=== PATIENT | male | born 1965 | race Caucasian/White ===

== ENCOUNTER → 2019-06-10 07:37 | Outpatient (CLI) | payer OTHER, SELFPAY ==
--- NOTE | 2019-06-10 07:42 | CT_ITS ---
STUDY: LEFT KNEE CT SCAN REASON FOR EXAM: Male, 53 years old. LEFT KNEE PAIN [facility] RADIATION DOSAGE (If Supplied By Facility): CTDIvol = ( 32.42 ) mGy, DLP = ( 2360.41 ) mGycm. Individualized dose optimization techniques were used for this CT.? TECHNIQUE: Axial multidetector CT scan of the left knee. Coronal and sagittal reformatted images. Additional imaging of the left hip and ankle ([facility] protocol). COMPARISON: January 26, 2016. FINDINGS: Moderate/severe medial compartment joint space narrowing. Mild lateral compartment joint space narrowing. Mild/moderate patellofemoral joint space. Multiple osteophytes. Left knee intact without fracture, dislocation or bony destruction. Small volume knee joint effusion. Moderate-sized popliteal cyst. Mild swelling. Prostatomegaly. Prostate calcifications. Fat-containing left inguinal hernia. Remainder of the intraabdominal/pelvic contents within normal limits. No focal muscle abnormality. Mild left hip osteoarthritis. Hips and pelvis intact. Mild left ankle osteoarthritis. Left ankle intact. CT/Extremity Lower without Contra IMPRESSION: Left knee tricompartmental osteoarthritis predominating medially Left knee small volume joint effusion, moderate sized popliteal cyst and mild swelling Mild left hip and ankle osteoarthritis Electronically Signed: David Francisco DO at 13:55 EDT Tel , Service support ,
== END ==
LOC: CT 07:37
PROVIDERS: Referring Provider Specialist; Visit Provider Specialist
DX: M21.162 Varus deformity, not elsewhere classified, left knee (principal)
CPT/HCPCS: 73700

== ENCOUNTER → 2020-10-19 09:32 | Outpatient (CLI) | payer OTHER, SELFPAY ==
[2020-10-19 08:24] VITALS: BMI 31.8
[2020-10-19 09:34] LABS: Bacteria 0 SEEN /hpf (None Seen); Mucous, Urine 0 SEEN /hpf (<or=2+); Squamous Epithelial Cells - UA 0 SEEN /hpf (0-5); White Blood Cells 0 SEEN /hpf (0-5)
[2020-10-19 12:27] LABS: Color, Urine Yellow (Yellow); Glucose, Dipstick Normal (Normal); Ketone-Dipstick Negative (Negative); Leukocyte Esterase-Dipstick Negative /ul (Negative); Nitrite-Dipstick Negative (Negative); Occult Blood-Urine 50 /ul (Negative); Protein-Dipstick Negative (Negative); Urine Bilirubin Dipstick Negative (Negative); Urine Clarity Clear (Clear); Urine Urobilinogen Normal (Normal)
[2020-10-19 12:35] LABS: Red Blood Cells-Urine 0-5 SEEN /hpf (0-5)
== END ==
PROVIDERS: PCP Internal Medicine; Visit Provider Internal Medicine
DX: R31.9 Hematuria, unspecified (principal)
CPT/HCPCS: 81001

== ENCOUNTER → 2020-10-30 07:23 | Outpatient (CLI) | payer OTHER, SELFPAY ==
[2020-10-19 08:24] VITALS: BMI 31.8
--- NOTE | 2020-10-30 07:31 | US_ITS ---
STUDY: RENAL ULTRASOUND - COMPLETE REASON FOR EXAM: Male, 55 years old. Hematuria TECHNIQUE: Ultrasound evaluation of the kidneys was performed with real-time and static torres-scale imaging. COMPARISON: None. FINDINGS: RIGHT KIDNEY: Normal location of the right kidney, which is normal in size. The right kidney measures 10.6 x 5.9 x 6.4 cm. There is a normal cortex of the right kidney. The renal cortex measures 2.3 cm. There is no right renal mass or cyst. There are no right renal calculi. There is no right hydronephrosis. DISTAL RIGHT URETER: There is non-visualization of the distal right ureter. There is no demonstrated right ureterovesical junction calculus. There is a visualized right ureteral jet. LEFT KIDNEY: Normal location of the left kidney, which is normal in size. The left kidney measures 11.4 x 5.8 x 6.6 cm. There is a normal cortex of the left kidney. The renal cortex measures 2.3 cm. There is no left renal mass or cyst. There are no left renal calculi. There is no left hydronephrosis. DISTAL LEFT URETER: There is non-visualization of the distal left ureter. There is no demonstrated left ureterovesical junction calculus. There is a visualized left ureteral jet. AORTA: There is no elongation or tortuosity of the abdominal aorta. I.V.C.: The IVC is patent. BLADDER: The bladder is sonographically normal US/Kidney and Bladder IMPRESSION: Normal ultrasound of the kidneys and urinary bladder. Electronically Signed: Get Calvin MD at 8:14 EDT , Service support ,
== END ==
PROVIDERS: PCP Internal Medicine; Referring Provider Internal Medicine; Visit Provider Internal Medicine
DX: R31.9 Hematuria, unspecified (principal)
CPT/HCPCS: 76770

== ENCOUNTER → 2021-09-27 | Outpatient (CLI) | payer OTHER, SELFPAY ==
[2021-09-27 12:29] LABS: Absolute Lymphocyte Count 1.01 X10^3/uL (0.83-4.51); Absolute Neutrophil Count 4.6 X10^3/uL (2.0-7.7); Basophil# 0.03 X10^3/uL; Basophil% 0.5 % (0-1); Eosinophil# 0.12 X10^3/uL; Eosinophils% 1.9 % (0-5); Hematocrit 49.2 % (40-54); Hemoglobin 15.7 g/dL (13.0-16.5); Lymphocyte # 1.01 X10^3/ul (0.83-4.51); Lymphocyte % 16.2 % (19-41); Mean Corp Hgb Conc 31.9 g/dL (32-36); Mean Corpuscular Hgb 28.6 pg (27.0-32.0); Mean Corpuscular Volume 89.8 fL (80-94); Mean Platelet Vol. 10.7 fl (6.2-12.0); Monocyte# 0.49 X10^3/uL; Monocyte% 7.9 % (0-10); NRBC Flagged by Analyzer 0 % (0-5); Neutrophil # 4.57 X10^3/uL (2.7-7.7); Neutrophil % 73.2 % (47-70); Platelet Count 262 K/mm3 (150-450); RBC Distribution Width CV 13.7 % (11.6-14.6); RBC Distribution Width SD 44.9 fl (35.1-43.9); Red Blood Count 5.48 M/mm3 (4.6-6.2); White Blood Count 6.2 K/mm3 (4.4-11.0)
[2021-09-27 12:56] LABS: Vitamin D,25 Hydroxy 40.7 ng/mL
[2021-09-27 12:59] LABS: Hemoglobin A1c 5.7 % (3.8-5.6)
[2021-09-27 13:00] LABS: ALB/GLOB Ratio 1.2 RATIO (0.9-2.4); AST(SGOT) 19 U/L (15-37); Alanine Aminotransfer ALT/SGPT 31 U/L (16-61); Alkaline Phosphatase 54 U/L (45-117); Anion Gap 8 (5-15); BUN 13 mg/dL (7-18); Calcium,Total 8.8 mg/dL (8.5-10.1); Chloride 105 mmol/L (98-107); Cholesterol 151 mg/dL (200); Creatinine, Serum 0.81 mg/dL (0.70-1.30); EST Glomerular Filtration Rate 104 mL/min (>60); Est Glom Filt Rate - Afr Amer 126 mL/min (>60); Globulin 3.3 g/dL (2.2-4.2); Glucose 111 mg/dL (74-106); High Density Lipoprotein 39 mg/dL; PSA,Total - Annual Screen 1.75 ng/mL (0.00-4.00); Potassium 4.2 mmol/L (3.5-5.1); Protein, Total 7.3 g/dL (6.4-8.2); Sodium Level 139 mmol/L (136-145); Triglycerides 55 mg/dL; Very Low Density Lipoprotein 11 mg/dL (5-40)
== END | disposition home or self-care (01) ==
LOC: BIMLAB 08:12
PROVIDERS: PCP Internal Medicine; Referring Provider Internal Medicine; Visit Provider Internal Medicine
DX: Z12.5 Encounter for screening for malignant neoplasm of prostate (principal); Z13.1 Encounter for screening for diabetes mellitus; Z13.220 Encounter for screening for lipoid disorders
CPT/HCPCS: 36415; 80053; 80061; 82306; 83036; 84153; 85025; G0103

== ENCOUNTER 2022-10-31 17:34 | Observation (INO) | payer OTHER, SELFPAY ==
[2022-10-31] VITALS (10 sets, daily range): BP systolic 128–163; BP diastolic 83–101; PULSE 53–81; RESP 11–23; TEMP 36.6–36.8; O2SAT 93–98; BMI 15.1; BMI 31.1
--- NOTE | 2022-10-31 17:40 | EKG12_ITS ---
Test Reason : POSS HEAT STROKE Blood Pressure : / mmHG Vent. Rate : 082 BPM Atrial Rate : 082 BPM P-R Int : 180 ms QRS Dur : 096 ms QT Int : 384 ms P-R-T Axes : 030 -23 017 degrees QTc Int : 448 ms Normal sinus rhythm Minimal voltage criteria for LVH, may be normal variant ( R in aVL ) Borderline ECG Confirmed by SCAR COCHRAN, HALEIGH ([id number]), photograph editor SHANNAN GIBBS ([id number]) on 11/01/2022 11:06:02 AM Referred By: ELIS Confirmed By:HALEIGH ABBOTT MD
--- NOTE | 2022-10-31 17:46 | CT_ITS ---
EXAM: CT HEAD WITHOUT INTRAVENOUS CONTRAST CLINICAL INDICATION: Acute mental status change TECHNIQUE: Multiple axial images were obtained of the head without intravenous contrast. This CT exam was performed using one or more of the following dose reduction techniques: automated exposure control, adjustment of the mA and/or kV according to patient size, and/or use of iterative reconstruction technique. RADIATION DOSE: CTDIvol = 44.99 mGy, DLP = 829.85 mGy-cm COMPARISON: No relevant prior studies available. FINDINGS: BRAIN AND EXTRA-AXIAL SPACES: Unremarkable. No intra- or extra-axial hemorrhage. No evidence of acute infarct. No intracranial mass or mass effect. There is preservation of the sampson/white matter interface. Posterior fossa structures are unremarkable. Ventricles are appropriate for age. No hydrocephalus. Basal cisterns are patent. BONES/JOINTS: Unremarkable. No discrete lytic or blastic abnormalities. SINUSES: Unremarkable as visualized. Clear. MASTOID AIR CELLS: Unremarkable. Clear. ORBITS: Visualized globes, extraocular muscles, optic nerves and retrobulbar fat appear unremarkable. CT/Brain/Head without Contrast IMPRESSION: Negative head/brain CT without intravenous contrast. Electronically Signed: Braulio Driscoll MD at 18:14 EDT ,
[2022-10-31 17:57] LABS: Absolute Lymphocyte Count 1.29 X10^3/uL (0.83-4.51); Absolute Neutrophil Count 8.3 X10^3/uL (2.0-7.7); Basophil# 0.05 X10^3/uL; Basophil% 0.5 % (0-1); Eosinophil# 0.12 X10^3/uL; Eosinophils% 1.1 % (0-5); Hematocrit 48.1 % (40-54); Hemoglobin 16.2 g/dL (13.0-16.5); Lymphocyte # 1.29 X10^3/ul (0.83-4.51); Lymphocyte % 12.1 % (19-41); Mean Corp Hgb Conc 33.7 g/dL (32-36); Mean Corpuscular Volume 86.2 fL (80-94); Mean Platelet Vol. 10.4 fl (6.2-12.0); Monocyte# 0.84 X10^3/uL; Monocyte% 7.9 % (0-10); NRBC Flagged by Analyzer 0 % (0-5); Neutrophil # 8.32 X10^3/uL (2.7-7.7); Neutrophil % 77.9 % (47-70); Platelet Count 254 K/mm3 (150-450); RBC Distribution Width CV 13.2 % (11.6-14.6); RBC Distribution Width SD 41.3 fl (35.1-43.9); Red Blood Count 5.58 M/mm3 (4.6-6.2); White Blood Count 10.7 K/mm3 (4.4-11.0)
[2022-10-31 18:03] LABS: Bacteria 0 SEEN /hpf (None Seen); Mucous, Urine 0 SEEN /hpf (<or=2+); Red Blood Cells-Urine 0 SEEN /hpf (0-5); Squamous Epithelial Cells - UA 0 SEEN /hpf (0-5); White Blood Cells 0 SEEN /hpf (0-5)
[2022-10-31 18:06] LABS: Color, Urine Straw (Yellow); Glucose, Dipstick Normal (Normal); Ketone-Dipstick Negative (Negative); Leukocyte Esterase-Dipstick Negative /ul (Negative); Nitrite-Dipstick Negative (Negative); Occult Blood-Urine 10 /ul (Negative); Protein-Dipstick Negative (Negative); Specific Gravity, Urine 1.005 (1.002-1.030); Urine Bilirubin Dipstick Negative (Negative); Urine Clarity Clear (Clear); Urine Urobilinogen Normal (Normal)
--- NOTE | 2022-10-31 18:26 | EX.ED.DYSGE1 ---
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 He was on the roof. He may have been on room for 4 hours. She contacted family members room he was working on and he did not fall from the roof. He believes he drank lots of fluids but is not certain. He does complain of mild headache. He denies double vision, blurred vision or loss of vision. He denies ringing's ears or decreased hearing. [place] trouble with speech or swallowing. Denies cardiac or respiratory symptoms. He denies GI symptoms. He denies urologic symptoms. He denies paresthesia, anesthesia motors. He denies trouble with balance. Member says his is out of town. He has not been under stress. Prior similar symptoms: No Recent Illness/Hospitalization: No PFSH PFSH Medical History (Updated 10/31/22 @ 19:[address] Valentino Garnett MD) Generalized OA Medical History no medical history Home Medications NK 10/31/22 [History Last Taken Unknown] Allergy/AdvReac Type Severity Reaction Status Date / Time No Known Allergies Allergy Verified 10/18/21 07:59 Family History Father Heart disease Mother Alzheimer's dementia Surgical History History of bilateral knee replacement Pilonidal cyst with abscess Social History (Updated 10/31/22 @ 18:[address] Valentino Garnett MD) household members: spouse Smoking Status: Never smoker alcohol intake: current alcohol intake frequency: a few times a month substance use type: does not use ROS ROS ED Review of Systems ROS Unobtainable: due to mental status and other Details: Patient states he does not recall. He answered no to every question EXAM Physical Exam Const Vital Signs: 10/31/22 17:36 10/31/22 19:15 10/31/22 19:16 Temperature 97.9 F Temperature Source Temporal Pulse Rate 81 81 Respiratory Rate 12 23 H Blood Pressure 163/97 H 128/101 H Blood Pressure Mean 119 106 Pulse Ox 93 Oxygen Delivery Method Room Air 10/31/22 19:27 Temperature Temperature Source Pulse Rate 70 Respiratory Rate 12 Blood Pressure Blood Pressure Mean Pulse Ox Oxygen Delivery Method Positive well nourished; Negative for unkempt General Appearance ED: NAD; Negative for unkempt, cyanotic, diaphoretic or pallor HEENT Reports moist mucous membranes HEENT Narrative: Head is atraumatic normocephalic. Ears normal. TMs normal. Nares patent. Uvula midline. No deviation tongue or protrusion. Eyes PERRL and EOMs intact bilaterally General Eye ED: Negative for pale conjunctiva or scleral icterus Neck no lymphadenopathy, supple and no JVD Chest Wall inspection of chest normal and palpation of chest normal Resp normal respiratory effort and clear to auscultation bilaterally Cardio regular rate, regular rhythm, S1 normal heart sound, S2 normal heart sound and no murmurs GI normal to inspection, nondistended, normoactive bowel sounds, non-tender, non-distended and no masses; Negative for hepatosplenomegaly Auscultation: hypoactive bowel sounds Back/Spine no CVA tenderness Thoracic Spine / Upper Back: Negative for thoracic spinal tenderness Lumbar Spine / Lower Back: Negative for lumbar spinal tenderness Extremity normal to inspection General Extremety ED: Negative for edema or tenderness General Extremity: Negative for edema Neuro No oriented x3, CN's II-XII intact bilaterally and no sensory deficits noted Neuro Narrative: There is no dysmetria. Gait observed and no ataxia. Patient is not oriented to time Sensorium / Orientation: alert Motor Exam: strength 5/5 throughout Psych mental status grossly normal Appearance: Negative for unkempt Skin no rashes or lesions noted, no wounds and skin turgor normal General Skin Exam: Negative for jaundice or pallor MDM MDM MDM Narrative Medical decision making narrative: Frontal diagnosis would include stroke, global amnesia, metabolic or infectious etiology. Lab Data Attestation: I reviewed the patient's lab results. Lab results narrative: CBC is under markable. Urine is unremarkable and specific gravity is 1.005. Labs: Laboratory Results - last 24 hr 10/31/22 10/31/22 17:13 17:50 WBC 10.7 RBC 5.58 Hgb 16.2 Hct 48.1 MCV 86.2 MCH 29.0 MCHC 33.7 RDW Std Deviation 41.3 RDW Coeff of James 13.2 Plt Count 254 MPV 10.4 Immature Gran % (Auto) 0.500 Neut % (Auto) 77.9 H Lymph % (Auto) 12.1 L [place] % (Auto) 7.9 Eos % (Auto) 1.1 Baso % (Auto) 0.5 Absolute Neuts (auto) 8.3 H Absolute Lymphs (auto) 1.29 Nucleated RBC % 0 Sodium 136 Potassium 3.7 Chloride 105 Carbon Dioxide 22.0 Anion Gap 9 BUN 18 Creatinine 1.06 Estim Creat Clear Calc 50.89 Est GFR (MDRD) Af Amer 92 Est GFR (MDRD) Non-Af 76 BUN/Creatinine Ratio 17.0 Glucose 117 H Calcium 9.2 Total Bilirubin 0.40 AST 22 ALT 30 Alkaline Phosphatase 63 Total Protein 7.5 Albumin 4.2 Globulin 3.3 Albumin/Globulin Ratio 1.3 Urine Color Straw Urine Clarity Clear Urine pH 7.0 Ur Specific [place] 1.005 Urine Protein Negative Urine Glucose (UA) Normal Urine Ketones Negative Urine Occult Blood 10 H Urine Nitrite Negative Urine Bilirubin Negative Urine Urobilinogen Normal Ur Leukocyte Esterase Negative Urine RBC 0 SEEN Urine WBC 0 SEEN Ur Squamous Epith Cells 0 SEEN Urine Bacteria 0 SEEN Urine Mucus 0 SEEN Radiography Diagnostic Testing: Clinical Impression(s) from Imaging Studies Brain CT 10/31/22 17:46 IMPRESSION: Negative head/brain CT without intravenous contrast. Electronically Signed: Braulio Driscoll MD at 18:14 EDT Reading Location ID and State: [facility] / [place] , Service support , Treatment and Re-Evaluation :: Patient reports negative. This may represent global amnesia. Will call hospitalist for admission and possible MRI and further testing as an inpatient. Patient is still confused. He repeats himself. Discharge Plan Dx/Rx/DC Orders Clinical Impression: Acute alteration in mental status, Frequency of micturition Disposition Disposition: [facility]
[2022-10-31 18:38] LABS: ALB/GLOB Ratio 1.3 RATIO (0.9-2.4); AST(SGOT) 22 U/L (15-37); Alanine Aminotransfer ALT/SGPT 30 U/L (16-61); Albumin, Serum 4.2 g/dL (3.2-5.0); Alkaline Phosphatase 63 U/L (45-117); Anion Gap 9 (5-15); BUN 18 mg/dL (7-18); Calcium,Total 9.2 mg/dL (8.5-10.1); Chloride 105 mmol/L (98-107); Creatinine, Serum 1.06 mg/dL (0.70-1.30); EST Glomerular Filtration Rate 76 mL/min (>60); Est Glom Filt Rate - Afr Amer 92 mL/min (>60); Estimated Creatinine Clearance 50.89 ml/min; Globulin 3.3 g/dL (2.2-4.2); Glucose 117 mg/dL (74-106); Potassium 3.7 mmol/L (3.5-5.1); Protein, Total 7.5 g/dL (6.4-8.2); Sodium Level 136 mmol/L (136-145)
--- NOTE | 2022-10-31 20:16 | HP.PCM_ITS ---
HPI - General General Date of Admission: 10/31/22 Date of Service: 10/31/22 Chief Complaint: Mental status change HPI Narrative MARIBELL KELLOGG, is a 57 M who presents to the emergency room with chief complaint of mental status change. 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 Patient is a very poor historian due to lack of short-term memory due to recent events. With family members present we were able to piece together that he had been touring the roof for the greater part of the day, did not suffer any falls or injuries as his father was present to observe him during the move. After finishing his work and cleaning up we are suspecting he use some chemicals to clean his hands from the tar and may have been exposed to those chemicals by inhalation or absorption. The patient is unable to recall any memory accurately of today while he is was working in the past that time. CT exam of the head was negative CBC is not and BMP are unremarkable and urinalysis is negative for urinary tract infection. The patient has no significant past medical history and does not currently take any routine medica tions. Patient currently denies any chest pain, shortness of breath, fevers or chills, nausea vomiting or diarrhea. He has no neurologic deficits other than his short-term memory at this time. He does have polyuria and has traveled to the bathroom 7 times in the short time since he has been here to urinate. He will be admitted to the progressive care unit and monitored neurologically and will get MRI/MRA head and neck in the morning along with neurologic consultation. [facility] Medical History (Updated 10/31/22 @ 20:[address] Lg Hull MD) Generalized OA Medical History no medical history Home Medications NK 10/31/22 [History Last Taken Unknown] Allergy/AdvReac Type Severity Reaction Status Date / Time No Known Allergies Allergy Verified 10/18/21 07:59 Family History Father Heart disease Mother Alzheimer's dementia Surgical History History of bilateral knee replacement Pilonidal cyst with abscess Social History (Updated 10/31/22 @ 18:[address] Valentino Garnett MD) household members: spouse Smoking Status: Never smoker alcohol intake: current alcohol intake frequency: a few times a month substance use type: does not use ROS Constitutional Constitutional: Denies chills or fever(s) Eyes Eyes: Denies blurry vision, change in vision or double vision ENT HEENT: Denies abnormal hearing, dysphagia, ear pain, epistaxis, hearing loss, loss taste/smell, nasal congestion or nasal discharge Cardiovascular Cardiovascular: Denies chest pain, edema or palpitations Respiratory/Chest Respiratory/Chest: Denies cough or shortness of breath at rest Gastrointestinal Gastrointestinal: Denies abdominal pain, constipation, nausea or vomiting Genitourinary Genitourinary: Reports polyuria, urinary frequency and urinary urgency Musculoskeletal Musculoskeletal: Denies back pain Integumentary Integumentary: Denies dry skin Neurologic Neurologic: Reports confusion; Denies headache(s) or lack of coordination Psychiatric Psychiatric: Reports anxiety Endocrine Endocrinology: Denies change in body appearance Hematologic/Lymphatic Hematologic/Lymphatic: Denies easy bleeding Vital Signs Vital Signs Vital Signs: 10/31/22 17:36 10/31/22 19:15 10/31/22 19:16 Temperature 97.9 F Temperature Source Temporal Pulse Rate 81 81 Respiratory Rate 12 23 H Blood Pressure 163/97 H 128/101 H Blood Pressure Mean 119 106 Pulse Ox 93 Oxygen Delivery Method Room Air 10/31/22 19:27 10/31/22 19:30 10/31/22 19:43 Temperature Temperature Source Pulse Rate 70 69 68 Respiratory Rate 12 14 13 Blood Pressure 128/89 H Blood Pressure Mean 101 Pulse Ox Oxygen Delivery Method 10/31/22 19:45 Temperature 98.2 F Temperature Source Oral Pulse Rate 67 Respiratory Rate 18 Blood Pressure 145/83 H Blood Pressure Mean 101 Pulse Ox 98 Oxygen Delivery Method Room Air Weight Weight: 105 lb 11.2 oz Body Mass Index (BMI) 15.1 Physical Exam Const alert and no apparent distress General Appearance: cooperative and well developed Orientation / Consciousness: confused HEENT normocephalic, head/scalp atraumatic and moist oral mucous membranes Eyes PERRL and EOMs intact bilaterally Neck no lymphadenopathy, supple, no JVD and thyroid normal General: trachea midline Lymph Lymphatic: no lymphadenopathy noted Resp normal respiratory effort, normal air movement and clear to auscultation bilaterally Cardio regular rate, regular rhythm, S1 normal heart sound, S2 normal heart sound and no murmurs GI normal to inspection, nondistended, normoactive bowel sounds and soft to palpation Extremity normal capillary refill and no clubbing, cyanosis or edema Skin General Skin Exam: no breakdown and turgor normal Neuro CN's II-XII intact bilaterally, no focal motor deficits and no sensory deficits noted Speech: speech normal Motor Exam: strength 5/5 throughout Psych cooperative and affect normal Psych Narrative: Impaired memory of events from earlier today Mood & Affect: anxious Results Lab / Micro Data 10/31/22 17:13 10/31/22 17:13 Labs: Laboratory Results - last 24 hr 10/31/22 17:13: WBC 10.7, RBC 5.58, Hgb 16.2, Hct 48.1, MCV 86.2, MCH 29.0, MCHC 33.7, RDW Std Deviation 41.3, RDW Coeff of James 13.2, Plt Count 254, MPV 10.4, Immature Gran % (Auto) 0.500, Neut % (Auto) 77.9 H, Lymph % (Auto) 12.1 L, [place] % (Auto) 7.9, Eos % (Auto) 1.1, Baso % (Auto) 0.5, Absolute Neuts (auto) 8.3 H, Absolute Lymphs (auto) 1.29, Nucleated RBC % 0, Sodium 136, Potassium 3.7, Chloride 105, Carbon Dioxide 22.0, Anion Gap 9, BUN 18, Creatinine 1.06, Estim Creat Clear Calc 50.89, Est GFR (MDRD) Af Amer 92, Est GFR (MDRD) Non-Af 76, BUN/Creatinine Ratio 17.0, Glucose 117 H, Calcium 9.2, Total Bilirubin 0.40, AST 22, ALT 30, Alkaline Phosphatase 63, Total Protein 7.5, Albumin 4.2, Globulin 3.3, Albumin/Globulin Ratio 1.3 10/31/22 17:50: Urine Color Straw, Urine Clarity Clear, Urine pH 7.0, Ur Specific [place] 1.005, Urine Protein Negative, Urine Glucose (UA) Normal, Urine Ketones Negative, Urine Occult Blood 10 H, Urine Nitrite Negative, Urine Bilirubin Negative, Urine Urobilinogen Normal, Ur Leukocyte Esterase Negative, Urine RBC 0 SEEN, Urine WBC 0 SEEN, Ur Squamous Epith Cells 0 SEEN, Urine Bacteria 0 SEEN, Urine Mucus 0 SEEN Radiology Impression Brain CT 10/31/22 17:46 IMPRESSION: Negative head/brain CT without intravenous contrast. Electronically Signed: Braulio Driscoll MD at 18:14 EDT , Assessment & Plan Assessment/Plan (1) Acute alteration in mental status: (2) Frequency of micturition: (3) Suspected exposure to hazardous chemicals: PLAN: Plan 1 acute mental status change, transient global amnesia?admit patient to progressive care unit, initiate neurologic evaluations every 4 hours, MRI/MRA head and neck in the a.m., repeat CBC CMP in a.m. consult neurology in the a.m. to assess for etiology and treatment for his amnesia. I am suspicious that the patient used a chemical such as gasoline, possibly kerosene or other solvent to clean his hands after touring the roof as his hands were mostly clean on examination. My concern is that he and he inhaled or absorbed some of these chemicals to cause what we are seeing with his loss of memory at this time. 2. Frequency of micturition possibly secondary to chemical exposure as suspected above will initiate IV normal saline at a rate of 125 cc/h continue to monitor electrolytes accordingly. UA was negative for infectious causes at this time 3. DVT prophylaxis?patient is ambulatory at this time (going to the bathroom frequently) and will not be needing SCDs or Lovenox for the time being Charges/Coding Visit Charges Inpatient E&M: 40792 Init Hosp L2
[2022-10-31] MEDS: 0.9% Normal Saline 1,000 ML 125 ML IV (21:39)
[2022-10-31] MEDS: 0.9% Saline Lock 10 ML Syringe IV (21:39)
[2022-10-31 22:40] LABS: Alcohol, Blood (Medical)-Serum < 3.0 mg/dL
[2022-11-01] VITALS (7 sets, daily range): BP systolic 138–151; BP diastolic 58–90; PULSE 52–70; RESP 16–18; TEMP 36.4–36.8; O2SAT 97–98; BMI 31.1
[2022-11-01 02:13] LABS: Amphetamine Urine VISTA NEGATIVE (<1000 ng/mL); Barbiturate Urine VISTA NEGATIVE (< 200 ng/mL); Benzodiazepine Urine VISTA NEGATIVE (< 200 ng/mL); Cocaine Urine VISTA NEGATIVE (< 300 ng/mL); Ecstacy Urine VISTA NEGATIVE (< 500 ng/mL); Methadone Urine VISTA NEGATIVE (< 300 ng/mL); PCP Urine VISTA NEGATIVE (< 25 ng/mL); THC Urine VISTA NEGATIVE (< 50 ng/mL); Vista UDS pH Range 5
[2022-11-01] MEDS: 0.9% Normal Saline 1,000 ML 125 ML IV ×2 (05:25→15:02)
[2022-11-01 06:07] LABS: Absolute Lymphocyte Count 1.21 X10^3/uL (0.83-4.51); Absolute Neutrophil Count 4.9 X10^3/uL (2.0-7.7); Basophil# 0.04 X10^3/uL; Basophil% 0.6 % (0-1); Eosinophil# 0.11 X10^3/uL; Eosinophils% 1.6 % (0-5); Hematocrit 45.9 % (40-54); Hemoglobin 14.9 g/dL (13.0-16.5); Lymphocyte # 1.21 X10^3/ul (0.83-4.51); Lymphocyte % 17.8 % (19-41); Mean Corp Hgb Conc 32.5 g/dL (32-36); Mean Corpuscular Hgb 28.5 pg (27.0-32.0); Mean Corpuscular Volume 87.8 fL (80-94); Mean Platelet Vol. 9.8 fl (6.2-12.0); Monocyte% 7.4 % (0-10); NRBC Flagged by Analyzer 0 % (0-5); Neutrophil # 4.88 X10^3/uL (2.7-7.7); Platelet Count 221 K/mm3 (150-450); RBC Distribution Width CV 13.3 % (11.6-14.6); RBC Distribution Width SD 42.6 fl (35.1-43.9); Red Blood Count 5.23 M/mm3 (4.6-6.2); White Blood Count 6.8 K/mm3 (4.4-11.0)
[2022-11-01 06:34] LABS: ALB/GLOB Ratio 1.2 RATIO (0.9-2.4); AST(SGOT) 17 U/L (15-37); Alanine Aminotransfer ALT/SGPT 26 U/L (16-61); Albumin, Serum 3.4 g/dL (3.2-5.0); Alkaline Phosphatase 57 U/L (45-117); Anion Gap 3 (5-15); BUN 12 mg/dL (7-18); BUN/Creat Ratio 13.9 RATIO (10-20); Calcium,Total 8.5 mg/dL (8.5-10.1); Chloride 113 mmol/L (98-107); Cholesterol 147 mg/dL (200); Creatinine, Serum 0.86 mg/dL (0.70-1.30); EST Glomerular Filtration Rate 97 mL/min (>60); Est Glom Filt Rate - Afr Amer 117 mL/min (>60); Estimated Creatinine Clearance 95.49 ml/min; Globulin 2.9 g/dL (2.2-4.2); Glucose 113 mg/dL (74-106); High Density Lipoprotein 37 mg/dL; Phosphorus 3.7 mg/dL (2.5-4.9); Potassium 4.1 mmol/L (3.5-5.1); Protein, Total 6.3 g/dL (6.4-8.2); Sodium Level 142 mmol/L (136-145); Triglycerides 105 mg/dL; Very Low Density Lipoprotein 21 mg/dL (5-40)
[2022-11-01] MEDS: Aspirin 325 MG Tablet PO (08:06)
--- NOTE | 2022-11-01 10:00 | MRI_ITS ---
HISTORY: Altered mental status. TECHNIQUE: Multiplanar and multisequence MR images of the brain were obtained without contrast. 290 images. COMPARISON: CT prior day. FINDINGS: BRAIN PARENCHYMA: Very mild chronic white matter changes. No abnormal focus of restricted diffusion. No acute intracranial hemorrhage identified. CSF SPACES: Cerebral ventricles, cortical sulci, and other extra-axial CSF spaces within normal limits in size for age. No significant midline shift or other mass effect.No extra-axial fluid collection. VASCULAR SYSTEM: Major intracranial flow voids are maintained. PARANASAL SINUSES AND MASTOID AIR CELLS: Sphenoid sinus and right maxillary sinus mucous retention cysts. ORBITS: Symmetric contents. MRI/Brain without Contrast IMPRESSION: No evidence for acute infarct. Very mild chronic white matter changes. Electronically Signed: Gaye Robles MD at 12:04 EDT ,
--- NOTE | 2022-11-01 10:00 | MRI_ITS ---
HISTORY: Altered mental status. TECHNIQUE: Routine [id number] carotid MR angiogram protocol was performed without contrast. 3D reconstructions were reviewed. NASCET criteria using the distal ICAs for comparison were used for evaluation of stenoses. 559 images. COMPARISON: None. FINDINGS: RIGHT CCA/RIGHT ICA: Approximately 50% stenosis at the common carotid bifurcation extending into the origin of the internal carotid artery. No occlusion or dissection. LEFT CCA/LEFT ICA: Approximately 50% stenosis at the common carotid bifurcation extending into the origin of the internal carotid artery. No occlusion or dissection. RIGHT VERTEBRAL ARTERY: No occlusion, significant stenosis, or aneurysm. LEFT VERTEBRAL ARTERY: No occlusion, significant stenosis, or aneurysm. MRI/MRA Neck without Contrast IMPRESSION: Bilateral common carotid artery bifurcations and internal carotid artery origins with approximately 50% stenosis. No evidence for occlusion in the vertebral or carotid arteries of the neck. Electronically Signed: Gaye Robles MD at 12:01 EDT ,
--- NOTE | 2022-11-01 10:00 | MRI_ITS ---
HISTORY: Altered mental status. TECHNIQUE: Routine [place]/brain 3D time of flight MR angiogram protocol was performed without contrast. 3D reconstructions were reviewed. 193 images. COMPARISON: MRI same day. FINDINGS: ICAs: No significant stenosis at the intracranial/visualized segments. ACAs: No significant stenosis at the visualized segments. MCAs: No significant stenosis at the visualized segments. gang drill press operator: No significant stenosis at the visualized segments. BASILAR ARTERY: No significant stenosis. VERTEBRAL ARTERIES: No significant stenosis at the intradural/visualized segments. No evidence of intracranial aneurysm or vascular malformation. MRI/MRA Head ONLY without Contrast IMPRESSION: No evidence for large vessel occlusion or other focal vascular abnormality in the [place] region. Electronically Signed: Gaye Robles MD at 12:34 EDT ,
[2022-11-01] MEDS: 0.9% Saline Lock 10 ML Syringe IV (11:15)
--- NOTE | 2022-11-01 12:00 | CASEMGMT ---
RN CM Face to Face with patient for initial transition planning/care coordination assessment. RN CM introduced self and role at [facility]. Patient lying in bed, alert and oriented, son at bedside. Patient willing to participate in assessment and is able to answer all questions appropriately. Care providers, pharmacy, and demographics verified. Patient wishes to discharge home, denies need for home health at this time. Patient states he has no further needs or concerns at this time. CM to follow for discharge planning needs that may arise. PCP: Karen Specialists: raymundo Leach; [employer] Preferred [facility]acy: [facility] Insurance: MMO Prescription Benefit: yes Living Will/HPOA: yes patient believes it is his LNOK: Living Arrangements: Patient lives with in a single story home with 1 step to enter. Patient states he is independent at home. Transportation: self, DME/HHC: Patient has bipap at home. No previous HHC or SNF Disposition Plan: Patient to discharge home with family support and follow-up plans in place. Cuca AN, RN, CM
--- NOTE | 2022-11-01 16:04 | PN.HOSP_ITS ---
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 He remembers the morning and remembers everything prior and has no ongoing confusion Objective Data Objective Data Vital Signs: Vital Signs Temp Pulse Resp BP Pulse Ox O2 Del Method FiO2 98.2 F 58 L 16 141/88 H 98 Room Air 21 11/01/22 14:51 11/01/22 14:51 11/01/22 14:51 11/01/22 14:51 11/01/22 14:51 11/01/22 14:56 10/31/22 22:50 Oxygen Delivery Method Room Air Weight: 98.6 kg Body Mass Index (BMI) 31.1 Intake & Output: Intake and Output for Last 24 Hours 10/30/22 10/31/22 11/01/22 23:59 23:59 23:59 Intake Total 500 / 500 Balance 500 / 500 Lab / Micro Data 11/01/22 05:40 11/01/22 05:40 Labs: Laboratory Results - last 24 hr 10/31/22 17:13: WBC 10.7, RBC 5.58, Hgb 16.2, Hct 48.1, MCV 86.2, MCH 29.0, MCHC 33.7, RDW Std Deviation 41.3, RDW Coeff of James 13.2, Plt Count 254, MPV 10.4, Immature Gran % (Auto) 0.500, Neut % (Auto) 77.9 H, Lymph % (Auto) 12.1 L, [place] % (Auto) 7.9, Eos % (Auto) 1.1, Baso % (Auto) 0.5, Absolute Neuts (auto) 8.3 H, Absolute Lymphs (auto) 1.29, Nucleated RBC % 0, Sodium 136, Potassium 3.7, Chloride 105, Carbon Dioxide 22.0, Anion Gap 9, BUN 18, Creatinine 1.06, Estim C reat Clear Calc 50.89, Est GFR (MDRD) Af Amer 92, Est GFR (MDRD) Non-Af 76, BUN/Creatinine Ratio 17.0, Glucose 117 H, Calcium 9.2, Total Bilirubin 0.40, AST 22, ALT 30, Alkaline Phosphatase 63, Total Protein 7.5, Albumin 4.2, Globulin 3.3, Albumin/Globulin Ratio 1.3 10/31/22 17:50: Urine Color Straw, Urine Clarity Clear, Urine pH 7.0, Ur Specific [place] 1.005, Urine Protein Negative, Urine Glucose (UA) Normal, Urine Ketones Negative, Urine Occult Blood 10 H, Urine Nitrite Negative, Urine Bilirubin Negative, Urine Urobilinogen Normal, Ur Leukocyte Esterase Negative, Urine RBC 0 SEEN, Urine WBC 0 SEEN, Ur Squamous Epith Cells 0 SEEN, Urine Bacteria 0 SEEN, Urine Mucus 0 SEEN, Urine Opiates Screen NEGATIVE, Urine Methadone Screen NEGATIVE, Ur Barbiturates Screen NEGATIVE, Ur Phencyclidine Scrn NEGATIVE, Ur Amphetamines Screen NEGATIVE, MDMA (Ecstasy) Screen NEGATIVE, U Benzodiazepines Scrn NEGATIVE, Urine Cocaine Screen NEGATIVE, U Cannabinoids Screen NEGATIVE, Ur Drug Screen Comment 10/31/22 21:57: Ethyl Alcohol < 3.0 11/01/22 05:40: WBC 6.8, RBC 5.23, Hgb 14.9, Hct 45.9, MCV 87.8, MCH 28.5, MCHC 32.5, RDW Std Deviation 42.6, RDW Coeff of James 13.3, Plt Count 221, MPV 9.8, Immature Gran % (Auto) 0.600, Neut % (Auto) 72.0 H, Lymph % (Auto) 17.8 L, [place] % (Auto) 7.4, Eos % (Auto) 1.6, Baso % (Auto) 0.6, Absolute Neuts (auto) 4.9, Absolute Lymphs (auto) 1.21, Nucleated RBC % 0, Sodium 142, Potassium 4.1, C hloride 113 H, Carbon Dioxide 26.0, Anion Gap 3 L, BUN 12, Creatinine 0.86, Estim Creat Clear Calc 95.49, Est GFR (MDRD) Af Amer 117, Est GFR (MDRD) Non-Af 97, BUN/Creatinine Ratio 13.9, Glucose 113 H, Calcium 8.5, Phosphorus 3.7, Magnesium 2.0, Total Bilirubin 0.50, AST 17, ALT 26, Alkaline Phosphatase 57, Total Protein 6.3 L, Albumin 3.4, Globulin 2.9, Albumin/Globulin Ratio 1.2, Triglycerides 105, Cholesterol 147, LDL Cholesterol 89, VLDL Cholesterol 21, HDL Cholesterol 37 L Radiography Diagnostic Testing: Radiology Impression Brain CT 10/31/22 17:46 IMPRESSION: Negative head/brain CT without intravenous contrast. Electronically Signed: rBaulio Driscoll MD at 18:14 EDT , Brain MRI 11/01/22 10:00 IMPRESSION: No evidence for acute infarct. Very mild chronic white matter changes. Electronically Signed: Gaye Robles MD at 12:04 EDT , Head MRA 11/01/22 10:00 IMPRESSION: No evidence for large vessel occlusion or other focal vascular abnormality in the [place] region. Electronically Signed: Gaye Robles MD at 12:34 EDT , Physical Exam Narrative General: Alert, oriented, no apparent distress HEENT: Atraumatic, normocephalic Eyes: Anicteric, normal conjunctiva, extraocular movements grossly intact Neck: Supple Respiratory: Clear to auscultation bilaterally, normal respiratory effort Cardiovascular: Regular rate and rhythm GI: Soft, nontender, nondistended Extremities: No edema Musculoskeletal: Moving all extremities Neuro: No overt focal neurological deficits Skin: No rashes appreciated Psych: Cooperative Assessment & Plan Assessment/Plan (1) Acute alteration in mental status: (2) Frequency of micturition: (3) Suspected exposure to hazardous chemicals: PLAN: Plan 1 acute mental status change, transient global amnesia -admit patient to progressive care unit -initiate neurologic evaluations every 4 hours -MRI/MRA head and neck in the a.m., repeat CBC CMP in a.m. -consult neurology in the a.m. to assess for etiology and treatment for his amnesia. -suspicious that the patient used a chemical such as gasoline, possibly kerosene or other solvent to clean his hands after touring the roof as his hands were mostly clean on examination. My concern is that he and he inhaled or absorbed some of these chemicals to cause what we are seeing with his loss of memory at this time. -11/01: Patient has no anterograde amnesia and remembers everything other than the specific time period. MRI and MRA head unremarkable, waiting neuro evaluation and can likely DC home pending recommendations Charges/Coding Visit Charges Inpatient E&M: 64912 Subs Hosp L1
[2022-11-02 08:05] VITALS: BP 126/85; PULSE 51; RESP 18; TEMP 36.3; O2SAT 95
[2022-11-02] MEDS: Aspirin 325 MG Tablet PO (08:07)
--- NOTE | 2022-11-02 10:18 | DCINST_ITS ---
Discharge Instructions Diet Discharge Diet: No restrictions Activity Discharge Activity: Return to Normal Activity Follow Up Care Test Results: Test results from this visit will be discussed in further detail at your follow- up appointment, if applicable. Discharge Plan Admission Admit Date/Time: 10/31/22 20:26 Primary Reason for Your Visit: Amnesia Attending Provider: Alize Bowser Primary Care Provider: Kari Jones Consulting Providers: Lg Hull Instructions Patient Instructions: ED Fall Prevention Additional Instructions / Restrictions: DISCHARGE INSTRUCTIONS PLEASE READ *Please take this with you to your next doctors appointment* -It is recommended that you have an echocardiogram but this can be obtained on an outpatient basis through your PCPs office -It is recommended you take a baby aspirin, 81 mg, every day. This can be obtain ed over the counter at a pharmacy/drug store -Please call your primary care provider's office upon discharge to schedule a hospital follow up within 1 week. -For any concerning signs or symptoms please call 911 or proceed to the nearest emergency department Discharge Orders/Prescriptions Prescriptions: New aspirin 81 mg tablet,delayed release (DR/EC) 81 mg PO DAILY Qty: 30 0RF Referrals / Follow Up: Kari Jones MD [Primary Care Provider] - Within 1 Week Disposition Disposition (needs filled in before D/C Order can be placed): Home, Self Care
--- NOTE | 2022-11-02 10:18 | DS.PCM_ITS ---
Providers Date of Admission: 10/31/22 Date of Discharge: 11/02/22 Primary Care Physician: Dr. Kari Jones MD Reason For Visit: Transient AMNESIA Diagnosis Discharge Diagnosis (1) Acute alteration in mental status: Status: Acute Code(s): R41.82 - Altered mental status, unspecified (2) Frequency of micturition: Status: Acute Code(s): R35.0 - Frequency of micturition (3) Suspected exposure to hazardous chemicals: Status: Acute Code(s): Z77.098 - Contact with and (suspected) exposure to other hazardous, chiefly nonmedicinal, chemicals Plan 1.transient global amnesia Medications at Discharge Home Medications aspirin 81 mg tablet,delayed release 81 mg PO DAILY #30 tabs 11/02/22 Hospital Course Summary of Care Provided Minutes Spent on Discharge: 35 Hospital Course: MARIBELL KELLOGG, is a 57 M who presented to the emergency room with chief complaint of mental status change on 10/31/22. 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 He was admitted for neuro w/u and workup unrevealing. Pt remembered the morning of admission leading up to going to the roof and remembered everything from the ED on with no other retrograde or anterograde amnesia. Neuro eval'd and recommended outpt echo and asa 81mg daily and cleared pt for d/c. Advised to f/u with PCP on d/c for echo. Physical Exam Narrative General: Alert, oriented, no apparent distress HEENT: Atraumatic, normocephalic Eyes: Anicteric, normal conjunctiva, extraocular movements grossly intact Neck: Supple Respiratory: Clear to auscultation bilaterally, normal respiratory effort Cardiovascular: Regular rate and rhythm GI: Soft, nontender, nondistended Extremities: No edema Musculoskeletal: Moving all extremities Neuro: No overt focal neurological deficits Skin: No rashes appreciated Psych: Cooperative Weight / BMI Weight Weight: 98.6 kg Body Mass Index (BMI) 31.1 ABG / Lab / Microbiology Data 11/01/22 05:40 11/01/22 05:40 Radiography Diagnostic Testing: Radiology Impression Brain MRI 11/01/22 10:00 IMPRESSION: No evidence for acute infarct. Very mild chronic white matter changes. Electronically Signed: Gaye Robles MD at 12:04 EDT , Head MRA 11/01/22 10:00 IMPRESSION: No evidence for large vessel occlusion or other focal vascular abnormality in the [place] region. Electronically Signed: Gaye Robles MD at 12:34 EDT , Neck MRA 11/01/22 10:00 IMPRESSION: Bilateral common carotid artery bifurcations and internal carotid artery origins with approximately 50% stenosis. No evidence for occlusion in the vertebral or carotid arteries of the neck. Electronically Signed: Gaye Robles MD at 12:01 EDT , D/C Instructions Discharge Diet: No restrictions Meaningful Use Info Meaningful Use Diagnoses (Choose all that apply): None applicable Discharge Plan Admission Admit Date/Time: 10/31/22 20:26 Primary Reason for Your Visit: Amnesia Attending Provider: Alize Bowser Primary Care Provider: Kari Jones Consulting Providers: Lg Hull Instructions Patient Instructions: ED Fall Prevention Additional Instructions / Restrictions: DISCHARGE INSTRUCTIONS PLEASE READ *Please take this with you to your next doctors appointment* -It is recommended that you have an echocardiogram but this can be obtained on an outpatient basis through your PCPs office -It is recommended you take a baby aspirin, 81 mg, every day. This can be obtained over the counter at a pharmacy/drug store -Please call your primary care provider's office upon discharge to schedule a hospital follow up within 1 week. -For any concerning signs or symptoms please call 911 or proceed to the nearest emergency department Discharge Orders/Prescriptions Prescriptions: New aspirin 81 mg tablet,delayed release (DR/EC) 81 mg PO DAILY Qty: 30 0RF Referrals / Follow Up: Kari Jones MD [Primary Care Provider] - Within 1 Week Disposition Disposition (needs filled in before D/C Order can be placed): Home, Self Care Charges/Coding Visit Charges Inpatient E&M: 31114 Disch Hosp >30min
[2022-11-02 10:21] VITALS: BP 126/85; PULSE 51; RESP 18; TEMP 36.3; O2SAT 95
--- NOTE | 2022-11-02 10:41 | PHA.DC_ITS ---
Pharmacy [facility] has performed discharge medication reconciliation and counseling for this patient. The patient's discharge medication list was reviewed for discrepancies and discrepancies were resolved. The patient was counseled on the following discharge medications and changes in medications for homegoing were reviewed. The Reason for Use, instructions for use, and potential side effects were reviewed for all new medications. The patient's questions regarding all of their medications were answered. 1. Aspirin 81 mg PO daily The patient was able to verbally demonstrate an understanding of their discharge medications. Medications at Discharge Home Medications aspirin 81 mg tablet,delayed release 81 mg PO DAILY #30 tabs 11/02/22
== END 2022-11-02 12:05 | disposition home or self-care (01) | DRG 72 ==
LOC: ED 19:39 → PCU 20:36
PROVIDERS: Admitting Provider Family Medicine; Emergency Provider Emergency Medicine; PCP Internal Medicine; Visit Provider Internal Medicine
DX: G45.4 Transient global amnesia (principal); R35.0 Frequency of micturition
CPT/HCPCS: 99285; 36415; 70450; 70544; 70547; 70551; 80053; 80061; 80307; 81001; 82077; 83735; 84100; 85025; 93005; 94660; 94762; 96360; 96361; 99221; J7030; A4216; G0378

== ENCOUNTER → 2022-11-07 | Outpatient (CLI) | payer OTHER, SELFPAY ==
--- NOTE | 2022-11-07 12:47 | ECHOD_ITS ---
Reason For Study: TIA/CVA Procedure This was a 2D Doppler, Color Flow transthoracic echocardiogram. Exam performed in department. Left Ventricle Normal LV size. Left ventricular systolic function is normal. The estimated ejection fraction is 60 %. No regional wall motion abnormalities noted. Right Ventricle Normal RV size. Normal systolic function. Atria Normal left atrium. Normal right atrium. Bubble contrast study negative for right to left interatrial shunt. Mitral Valve Mild diffuse mitral valve thickening. Tricuspid Valve Normal tricuspid valve. Aortic Valve Trisinus/trileaflet aortic valve. Great Vessels Moderately dilated aortic root. The pulmonary artery is normal size. Normal inferior vena cava. Pericardium/Pleural No pericardial effusion. Medication 22 gauge I.V. with prn adaptor inserted into right arm. Performed a rapid injection of agitated mix of 9 cc saline and 1cc air to assess for atrial septal defect. MMode/2D Measurements & Calculations LVIDd: 4.9 cm IVSd: 1.0 cm LVOT diam: 2.3 cm LVIDs: 3.2 cm LVPWd: 1.3 cm LVOT area: 4.3 cm2 FS: 34.8 % Ao root diam: 4.5 cm LAV(MOD-bp): 59.9 ml LVAd ap4: 34.3 cm2 LAV(MOD-bp) Indexed: 27.8 ml/m2 LVLd ap4: 7.9 cm LAV(MOD-sp2): 59.5 ml EDV(MOD-sp4): 120.2 ml LAV(MOD-sp4): 55.8 ml EDV(sp4-el): 126.1 ml LVAs ap4: 20.1 cm2 LVLs ap4: 6.7 cm ESV(MOD-sp4): 52.1 ml ESV(sp4-el): 51.4 ml EF(MOD-sp4): 56.7 % EF(sp4-el): 59.3 % SV(MOD-sp4): 68.1 ml SV(sp4-el): 74.7 ml LA A4 area: 20.1 cm2 RA A4 area: 17.5 cm2 TAPSE: 2.2 cm Time Measurements MV dec time: 0.32 sec Doppler Measurements & Calculations MV E max rodrigue: 57.0 cm/sec MV V2 max: 69.5 cm/sec MV dec slope: 194.9 cm/sec2 MV A max rodrigue: 47.5 cm/sec MV max P.9 mmHg MV E/A: 1.2 MV V2 mean: 32.7 cm/sec MV mean P.54 mmHg MV V2 VTI: 29.7 cm MVA(VTI): 3.5 cm2 Ao V2 max: 118.7 cm/sec LV V1 max: 97.6 cm/sec SV(LVOT): 104.9 ml Ao max P.6 mmHg LV V1 max P.8 mmHg Ao V2 mean: 84.5 cm/sec LV V1 mean P.1 mmHg Ao mean P.3 mmHg LV V1 mean: 67.6 cm/sec Ao V2 VTI: 31.3 cm LV V1 VTI: 24.2 cm AV (velocity ratio): 0.77 NAOMI(I,D): 3.3 cm2 NAOMI(V,D): 3.6 cm2 PA V2 max: 101.2 cm/sec PA V2 mean: 62.0 cm/sec ECHO/Echo Complete Interpretation Summary Normal LV size. Left ventricular systolic function is normal. The estimated ejection fraction is 60 %. Bubble contrast study negative for right to left interatrial shunt. Moderately dilated aortic root. Ordering Physician: Kari Jones Referring Physician: Kari Jones Performed By: Ainsley Partida RCS
== END | disposition home or self-care (01) ==
LOC: CVS 12:40
PROVIDERS: PCP Internal Medicine; Referring Provider Internal Medicine; Visit Provider Internal Medicine
DX: R41.82 Altered mental status, unspecified (principal); Z86.73 Personal history of transient ischemic attack (TIA), and cerebral infarction without residual deficits
CPT/HCPCS: 93306; A4216

== ENCOUNTER → 2023-11-21 | Outpatient (CLI) | payer OTHER, SELFPAY ==
--- NOTE | 2023-11-21 07:39 | ECHOD_ITS ---
Reason For Study: Thoracic Aortic Ectasia Procedure This was a 2D Doppler, Color Flow transthoracic echocardiogram. Exam performed in department. Left Ventricle Normal LV size. The estimated ejection fraction is 60 %. No evidence for diastolic dysfunction. No regional wall motion abnormalities noted. Right Ventricle Normal RV size. Normal systolic function. Atria The left and right atria are normal. Mitral Valve There is no mitral valve stenosis. No mitral valve insufficiency. Tricuspid Valve There is no tricuspid stenosis. Unable to estimate RV systolic pressure due to inadequate jet, pulmonary artery pressure probably normal. Aortic Valve Trisinus/trileaflet aortic valve. There is no aortic stenosis. No aortic valve insufficiency. Pulmonic Valve There is no pulmonic valvular stenosis. Trivial pulmonic valve insufficiency. Great Vessels Mildly dilated aortic root. Pericardium/Pleural No pericardial effusion. MMode/2D Measurements & Calculations LVIDd: 5.5 cm IVSd: 1.1 cm Ao root diam: 4.5 cm LVIDs: 3.2 cm LVPWd: 1.2 cm LA dimension: 4.4 cm RVDd: 4.3 cm FS: 41.8 % LAV(MOD-bp): 80.9 ml LVAd ap4: 36.6 cm2 SV(MOD-sp4): 82.5 ml LAV(MOD-bp) Indexed: 38.1 ml/m2 LVLd ap4: 8.3 cm LAV(MOD-sp2): 80.2 ml EDV(MOD-sp4): 132.2 ml LAV(MOD-sp4): 74.4 ml EDV(sp4-el): 137.7 ml LVAs ap4: 19.8 cm2 LVLs ap4: 6.6 cm ESV(MOD-sp4): 49.8 ml ESV(sp4-el): 50.5 ml EF(MOD-sp4): 62.4 % EF(sp4-el): 63.4 % SV(sp4-el): 87.2 ml LA A4 area: 23.7 cm2 RA A4 area: 20.3 cm2 Time Measurements MV dec time: 0.23 sec Doppler Measurements & Calculations MV E max da: 65.6 cm/sec Lat Peak E' Da: 12.4 cm/sec Med Peak E' Da: 6.9 cm/sec MV A max da: 51.8 cm/sec E/E' lat: 5.3 E/E' med: 9.6 MV E/A: 1.3 MV V2 max: 67.6 cm/sec MV P1/2t max da: 68.2 cm/sec Ao V2 max: 117.7 cm/sec MV max P.8 mmHg MV P1/2t: 77.8 msec Ao max P.5 mmHg MV V2 mean: 35.0 cm/sec Ao V2 mean: 83.7 cm/sec MV mean P.58 mmHg MV dec slope: 257.0 cm/sec2 Ao mean P.2 mmHg MV V2 VTI: 28.2 cm MVA(P1/2t): 2.8 cm2 Ao V2 VTI: 32.5 cm AV (velocity ratio): 0.78 LV V1 max: 101.8 cm/sec PA V2 max: 91.2 cm/sec PI dec slope: 85.7 cm/sec2 LV V1 max P.2 mmHg PA max PG (full): 1.4 mmHg LV V1 mean P.2 mmHg PA V2 mean: 57.2 cm/sec LV V1 mean: 69.5 cm/sec PA mean PG (full): 0.41 mmHg LV V1 VTI: 25.4 cm ECHO/Echo Complete Interpretation Summary The estimated ejection fraction is 60 %. No evidence for diastolic dysfunction. Mildly dilated aortic root. Ordering Physician: Kari Jones Referring Physician: Kari Jones Performed By: Nahun Lancaster RCS
== END | disposition home or self-care (01) ==
LOC: CVS 07:38
PROVIDERS: PCP Internal Medicine; Referring Provider Internal Medicine; Visit Provider Internal Medicine
DX: I77.810 Thoracic aortic ectasia (principal)
CPT/HCPCS: 93306

== ENCOUNTER → 2024-03-18 | Outpatient (CLI) | payer OTHER, SELFPAY ==
[2024-03-18 09:31] LABS: Absolute Lymphocyte Count 1.49 X10^3/uL (0.83-4.51); Absolute Neutrophil Count 6.3 X10^3/uL (2.0-7.7); Basophil# 0.05 X10^3/uL; Basophil% 0.6 % (0-1); Eosinophil# 0.23 X10^3/uL; Eosinophils% 2.7 % (0-5); Hematocrit 49.7 % (40-54); Lymphocyte # 1.49 X10^3/ul (0.83-4.51); Lymphocyte % 17.3 % (19-41); Mean Corp Hgb Conc 32.2 g/dL (32-36); Mean Corpuscular Hgb 27.8 pg (27.0-32.0); Mean Corpuscular Volume 86.4 fL (80-94); Mean Platelet Vol. 9.7 fl (6.2-12.0); Monocyte# 0.48 X10^3/uL; Monocyte% 5.6 % (0-10); NRBC Flagged by Analyzer 0 % (0-5); Neutrophil # 6.25 X10^3/uL (2.7-7.7); Neutrophil % 72.4 % (47-70); Platelet Count 289 K/mm3 (150-450); RBC Distribution Width CV 13.2 % (11.6-14.6); RBC Distribution Width SD 41.3 fl (35.1-43.9); Red Blood Count 5.75 M/mm3 (4.6-6.2); White Blood Count 8.6 K/mm3 (4.4-11.0)
[2024-03-18 10:05] LABS: Hemoglobin A1c 5.7 % (3.8-5.6)
[2024-03-18 10:16] LABS: AST(SGOT) 17 U/L (15-37); Alanine Aminotransfer ALT/SGPT 30 U/L (16-61); Albumin, Serum 3.6 g/dL (3.2-5.0); Alkaline Phosphatase 61 U/L (45-117); Anion Gap 4 (5-15); BUN 16 mg/dL (7-18); BUN/Creat Ratio 18.6 RATIO (10-20); Calcium,Total 8.8 mg/dL (8.5-10.1); Chloride 109 mmol/L (98-107); Cholesterol 200 mg/dL (200); Creatinine, Serum 0.86 mg/dL (0.70-1.30); EST Glomerular Filtration Rate 96 mL/min (>60); Est Glom Filt Rate - Afr Amer 116 mL/min (>60); Globulin 3.6 g/dL (2.2-4.2); Glucose 128 mg/dL (74-106); High Density Lipoprotein 33 mg/dL; PSA,Total - Annual Screen 2.57 ng/mL (0.00-4.00); Potassium 4.9 mmol/L (3.5-5.1); Protein, Total 7.2 g/dL (6.4-8.2); Sodium Level 138 mmol/L (136-145); Triglycerides 168 mg/dL; Uric Acid 6.1 mg/dL (3.5-7.2); Very Low Density Lipoprotein 34 mg/dL (5-40)
[2024-03-18 15:56] LABS: Vitamin D,25 Hydroxy 19.8 ng/mL
== END | disposition home or self-care (01) ==
LOC: LAB 08:51
PROVIDERS: PCP Internal Medicine; Referring Provider Internal Medicine; Visit Provider Internal Medicine
DX: Z00.00 Encounter for general adult medical examination without abnormal findings (principal); Z12.5 Encounter for screening for malignant neoplasm of prostate; I77.810 Thoracic aortic ectasia; M15.9 Polyosteoarthritis, unspecified; Z13.220 Encounter for screening for lipoid disorders; R73.9 Hyperglycemia, unspecified; E55.9 Vitamin D deficiency, unspecified; Z87.39 Personal history of other diseases of the musculoskeletal system and connective tissue
CPT/HCPCS: 36415; 80053; 80061; 82306; 83036; 84153; 84443; 84550; 85025; G0103

== ENCOUNTER 2024-07-22 11:10 | Emergency (ER) | payer OTHER, SELFPAY ==
[2024-07-22 11:11] VITALS: BP 136/74; PULSE 82; RESP 16; TEMP 35.6; O2SAT 99; BMI 29.3
--- NOTE | 2024-07-22 11:47 | RAD_ITS ---
PROCEDURE: CHEST PA AND LATERAL 07/22/2024 REASON FOR EXAM: CHEST PAIN TECHNIQUE: Frontal and lateral views of the chest. COMPARISON: None FINDINGS: Hardware: EKG electrodes. Heart: The heart size is normal. Mediastinum: Ectasia of the descending thoracic aorta. Lungs: The lungs are clear. Bones: The bones are unremarkable. RAD/Chest PA and Lateral IMPRESSION: NO ACUTE FINDINGS. Reading Location: [place] [id number]
--- NOTE | 2024-07-22 11:47 | EKG12_ITS ---
Test Reason : CP Blood Pressure : */* mmHG Vent. Rate : 55 BPM Atrial Rate : 55 BPM P-R Int : 176 ms QRS Dur : 94 ms QT Int : 426 ms P-R-T Axes : 11 -25 -32 degrees QTcB Int : 407 ms Sinus bradycardia Minimal voltage criteria for LVH, may be normal variant ( R in aVL ) Nonspecific ST and T wave abnormality Abnormal ECG Confirmed by SCAR COCHRAN, HALEIGH ([id number]), medical editor DOMINGA RUBIO ([id number]) on 07/24/2024 8:19:02 AM Referred By: STEPHANY/JASON Confirmed By: HALEIGH ABBOTT MD
--- NOTE | 2024-07-22 11:49 | EDS_ITS ---
HPI <ESTELLE Pandya - Last Filed: 07/22/24 14:54> History of Present Illness Chief Complaint: Chest Pain Narrative Narrative: Patient presenting today with midsternal chest pain that he describes as a spasm that started around 4 AM this morning. Nothing seems to make the pain better or worse, it is not exertional. He reports that he rode his bike for a far distance yesterday and did not have any chest pain while exerting himself. He denies any cardiac history. He has a PMH of HTN. He denies fevers, chills, shortness of breath, abdominal pain, nausea, vomiting. He denies tobacco use history. CVD Risk Factors: Positive for Hypertension PE Risk Factors: Negative for Recent Travel/Surgery, Recent Immobilization, Prior DVT or PE or Cancer PFSH <ESTELLE Pandya - Last Filed: 07/22/24 14:54> [facility] Medical History Essential hypertension Droopy eyelid Suspected exposure to hazardous chemicals Generalized OA Home Medications ?Medication ?Instructions ?Recorded ?Last Taken ?Type aspirin 81 mg tablet,delayed 81 mg PO DAILY #30 tabs 0 11/02/22 07/21/24 Rx release cholecalciferol (vitamin D3) 50 50 mcg PO QDAY 5 07/21/24 History mcg (2,000 unit) capsule lisinopril 20 1 tab PO QDAY #90 tabs 07/1607/22/24 Rx mg-hydrochlorothiazide 12.5 mg tablet Allergy/AdvReac Type Severity Reaction Status Date / Time No Known Allergies Allergy Verified 06/20/24 10:43 Family History Father Heart disease Mother Alzheimer's dementia Surgical History Status post rotator cuff repair Pilonidal cyst with abscess History of bilateral knee replacement Social History household members: spouse current occupational status: employed current occupation: [employer] worker pets and animals: Yes pets and animals: dog(s) Smoking Status: Never smoker alcohol intake: current details: On avg 1-2 beers twice a month substance use type: does not use caffeine: Yes Type: coffee Number of servings: 2 do you feel safe at home: Yes ROS <ESTELLE Pandya - Last Filed: 07/22/24 14:54> ROS ED Constitutional Constitutional ED: Denies chills or fever(s) Cardiovascular Cardiovascular: Reports chest pain; Denies palpitations Respiratory/Chest Respiratory/Chest: Denies cough or dyspnea Gastrointestinal Gastrointestinal: Denies abdominal pain, nausea or vomiting Musculoskeletal Musculoskeletal: Denies arthralgias or myalgias Integumentary Denies rash Neurologic Neurologic: Denies weakness EXAM <ESTELLE Pandya - Last Filed: 07/22/24 14:54> Physical Exam Const Vital Signs: 07/22/24 11:11 07/22/24 12:10 07/22/24 13:00 Temperature 96.1 F L Temperature Source Temporal Pulse Rate 82 57 L 57 L Respiratory Rate 16 19 H 19 H Blood Pressure 136/74 H 118/57 L 113/82 H Blood Pressure Mean 94 77 92 Pulse Ox 99 98 98 Oxygen Delivery Method Room Air Room Air Room Air 07/22/24 13:09 07/22/24 14:00 07/22/24 14:49 Temperature 98.1 F Temperature Source Pulse Rate 55 L 57 L Respiratory Rate 16 19 H Blood Pressure 107/62 113/82 H 156/85 H Blood Pressure Mean 77 92 108 Pulse Ox 98 98 98 Oxygen Delivery Method Room Air Positive well nourished, well developed and no apparent distress General Appearance ED: well developed HEENT Reports normocephalic and head/scalp atraumatic Mouth ED: Yes moist mucous membranes normal Eyes PERRL and EOMs intact bilaterally Neck full ROM and supple Chest Wall inspection of chest normal and palpation of chest normal Resp normal respiratory effort and clear to auscultation bilaterally Cardio regular rate and regular rhythm GI soft to palpation, non-tender, non-distended and no masses Back/Spine normal ROM and normal to inspection Extremity normal to inspection and full ROM Neuro oriented x3, CN's II-XII intact bilaterally, moves all extremities, no focal motor deficits and no sensory deficits noted Sensorium / Orientation: awake and alert Psych mental status grossly normal and thought process normal Skin no rashes or lesions noted and no wounds <Dr. Yannick Kemp MD - Last Filed: 07/22/24 14:51> Physical Exam Const Vital Signs: 07/22/24 11:11 07/22/24 12:10 07/22/24 13:00 Temperature 96.1 F L Temperature Source Temporal Pulse Rate 82 57 L 57 L Respiratory Rate 16 19 H 19 H Blood Pressure 136/74 H 118/57 L 113/82 H Blood Pressure Mean 94 77 92 Pulse Ox 99 98 98 Oxygen Delivery Method Room Air Room Air Room Air 07/22/24 13:09 07/22/24 14:00 07/22/24 14:49 Temperature 98.1 F Temperature Source Pulse Rate 55 L 57 L Respiratory Rate 16 19 H Blood Pressure 107/62 113/82 H 156/85 H Blood Pressure Mean 77 92 108 Pulse Ox 98 98 98 Oxygen Delivery Method Room Air MDM <ESTELLE Pandya - Last Filed: 07/22/24 14:54> MDM MDM Narrative Medical decision making narrative: Patient presenting with midsternal spasming chest pain he has had intermittently since around 2 AM. He is nontoxic-appearing and in no acute distress. He has a low Wells and modified [place] score, low suspicion for PE. Cardiac labs obtained, his CBC, BMP, delta troponin are largely unremarkable. EKG shows no signs of ischemia or ST elevation. Chest x-ray negative for cardiopulmonary abnormality. He has a low heart score, lower suspicion that pain is cardiac in nature. Recommended he follow-up with his PCP and patient discharged home in stable condition. I have personally performed a face to face assessment of the patient and have r eviewed the OSIEL Note. I performed a substantive portion of the visit including all aspects of the following. My bean findings include: History is 58-year-old male awoke from sleep last night with lower chest discomfort. Says had reflux before and think it was reflux. Did not radiate to his neck back or jaw. Currently symptom-free. No history of cardiac disease. Took a 2+ hour bike ride yesterday today had no difficulty. He has had no recent exertional chest pain or dyspnea. He has had stress test before in the past which have been negative. Never needed a heart cath. No history of DVT or PE or risk factors. Exam is [well-appearing 58-year-old male. Vital signs stable afebrile. Pulse ox 9 9% on room air no hypoxia. H EENT exam pupils round react light. Extra motions are intact. Neck nontender no JVD. No lymphadenopathy. Lungs clear to auscultation bilaterally. Heart regular rhythm no murmur rate about 80. Chest wall and ribs nontender. No reproducible pain. No ecchymosis or bruising. No subcu air crepitus. Abdomen is soft, nontender, nondistended normal bowel sounds peritoneal signs. No right upper or right lower quadrant tenderness. Moving all 4 extremities. 5-5 asp web developer strength. Dorsi plantarflexion intact. Equal symmetrical radial pulses. Calves are nontender without edema or cords. Back nontender. Neurologically is awake alert no focal motor deficits. Very benign exam.] Medical Decision Making [58-year-old male awoke with chest discomfort at 2 AM. Exam benign. Cardiac workup. If negative be discharged home. No DVT or PE risk factors. I do not think he needs a D-dimer. I do not think he needs a CAT scan.] Other additions or changes: [Repeat exam at 2:50 PM patient doing well. We discussed all his test results.Heart and lung exam normal again. Abdomen is benign and nontender. He is comfortable being discharged home with outpatient follow-up. Lab Data Labs: Laboratory Results - last 24 hr 07/22/24 07/22/24 11:25 13:43 WBC 7.4 RBC 5.47 Hgb 15.6 Hct 46.2 MCV 84.5 MCH 28.5 MCHC 33.8 RDW Std Deviation 40.2 RDW Coeff of James 13.2 Plt Count 261 MPV 9.8 Immature Gran % (Auto) 0.300 Neut % (Auto) 76.9 H Lymph % (Auto) 13.7 L Kent % (Auto) 7.0 Eos % (Auto) 1.4 Baso % (Auto) 0.7 Absolute Neuts (auto) 5.7 Absolute Lymphs (auto) 1.01 Nucleated RBC % 0 Sodium 136 Potassium 4.3 Chloride 100 Carbon Dioxide 24.8 Anion Gap 12 BUN 21 H Creatinine 0.85 Estim Creat Clear Calc 105.73 Est GFR (MDRD) Non-Af 99 BUN/Creatinine Ratio 25.1 H Glucose 126 H Calcium 9.5 Troponin T High Sens 10 Troponin T Hi Sens 2 Hr 8 Radiography X-Ray: Read by ED Physician Diagnostic Testing: Clinical Impression(s) from Imaging Studies Chest X-Ray 07/22/24 11:47 IMPRESSION: NO ACUTE FINDINGS. Reading Location: [facility] EKG Initial EKG: Comments: 55 bpm, sinus bradycardia, no ST elevation <Dr. Yannick Kemp MD - Last Filed: 07/22/24 14:51> [facility] MDM Narrative Medical decision making narrative: Patient presenting with midsternal spasming chest pain he has had intermittently since around 2 AM. He is nontoxic-appearing and in no acute distress. He has a low Wells and modified [place] score, low suspicion for PE. I have personally performed a face to face assessment of the patient and have reviewed the OSIEL Note. I performed a substantive portion of the visit including all aspects of the following. My bean findings include: History is 58-year-old male awoke from sleep last night with lower chest discomfort. Says had reflux before and think it was reflux. Did not radiate to his neck back or jaw. Currently symptom-free. No history of cardiac disease. Took a 2+ hour bike ride yesterday today had no difficulty. He has had no recent exertional chest pain or dyspnea. He has had stress test before in the past which have been negative. Never needed a heart cath. No history of DVT or PE or risk factors. Exam is [well-appearing 58-year-old male. Vital signs stable afebrile. Pulse ox 9 9% on room air no hypoxia. H EENT exam pupils round react light. Extra motions are intact. Neck nontender no JVD. No lymphadenopathy. Lungs clear to auscultation bilaterally. Heart regular rhythm no murmur rate about 80. Chest wall and ribs nontender. No reproducible pain. No ecchymosis or bruising. No subcu air crepitus. Abdomen is soft, nontender, nondistended normal bowel sounds peritoneal signs. No right upper or right lower quadrant tenderness. Moving all 4 extremities. 5-5 asp web developer strength. Dorsi plantarflexion intact. Equal symmetrical radial pulses. Calves are nontender without edema or cords. Back nontender. Neurologically is awake alert no focal motor deficits. Very benign exam.] Medical Decision Making [58-year-old male awoke with chest discomfort at 2 AM. Exam benign. Cardiac workup. If negative be discharged home. No DVT or PE risk factors. I do not think he needs a D-dimer. I do not think he needs a CAT scan.] Other additions or changes: [Repeat exam at 2:50 PM patient doing well. We discussed all his test results.Heart and lung exam normal again. Abdomen is benign and nontender. He is comfortable being discharged home with outpatient follow-up. History & Record Review Discussion w/independent historian: Patient Additional record(s) reviewed:: Prior inpatient record, Prior outpatient record, Prior ED visit and Prior labs Lab Data Attestation: I reviewed the patient's lab results. Lab results narrative: CBC normal. Chemistries show gap 12. BUN creatinine 21 0.8. Glucose 126. Initial troponin 10. 2-hour troponin 8. Patient be discharged to home. Chest pain uncertain etiology. Labs: Laboratory Results - last 24 hr 07/22/24 07/22/24 11:25 13:43 WBC 7.4 RBC 5.47 Hgb 15.6 Hct 46.2 MCV 84.5 MCH 28.5 MCHC 33.8 RDW Std Deviation 40.2 RDW Coeff of James 13.2 Plt Count 261 MPV 9.8 Immature Gran % (Auto) 0.300 Neut % (Auto) 76.9 H Lymph % (Auto) 13.7 L Kent % (Auto) 7.0 Eos % (Auto) 1.4 Baso % (Auto) 0.7 Absolute Neuts (auto) 5.7 Absolute Lymphs (auto) 1.01 Nucleated RBC % 0 Sodium 136 Potassium 4.3 Chloride 100 Carbon Dioxide 24.8 Anion Gap 12 BUN 21 H Creatinine 0.85 Estim Creat Clear Calc 105.73 Est GFR (MDRD) Non-Af 99 BUN/Creatinine Ratio 25.1 H Glucose 126 H Calcium 9.5 Troponin T High Sens 10 Troponin T Hi Sens 2 Hr 8 Radiography Diagnostic Testing: Clinical Impression(s) from Imaging Studies Chest X-Ray 07/22/24 11:47 IMPRESSION: NO ACUTE FINDINGS. Reading Location: [place] [address] Discharge Plan Triage Chief Complaint: Chest Pain ED Midlevel Provider: Ariana Navas ED Provider: Yannick Kemp Dx/Rx/DC Orders Clinical Impression: Chest pain of unknown etiology Instructions: ED Chest Pain, Noncardiac Prescriptions: No Action cholecalciferol (vitamin D3) 50 mcg (2,000 unit) capsule 50 mcg PO QDAY aspirin 81 mg tablet,delayed release (DR/EC) 81 mg PO DAILY Qty: 30 0RF lisinopril-hydrochlorothiazide 20-12.5 mg tablet 1 tab PO QDAY Qty: 90 1RF Primary Care Provider: Kari Jones Referrals: Kari Jones MD [Primary Care Provider] - 5-7 Days Activity Restrictions/Additional Instructions: Follow-up with your PCP and return for any other concerns or worsening symptoms. Print Language: Portuguese Disposition Disposition: Home, Self Care
[2024-07-22 11:56] LABS: Absolute Lymphocyte Count 1.01 X10^3/uL (0.83-4.51); Absolute Neutrophil Count 5.7 X10^3/uL (2.0-7.7); Basophil# 0.05 X10^3/uL; Basophil% 0.7 % (0-1); Eosinophils% 1.4 % (0-5); Hematocrit 46.2 % (40-54); Hemoglobin 15.6 g/dL (13.0-16.5); Lymphocyte # 1.01 X10^3/ul (0.83-4.51); Lymphocyte % 13.7 % (19-41); Mean Corp Hgb Conc 33.8 g/dL (32-36); Mean Corpuscular Hgb 28.5 pg (27.0-32.0); Mean Corpuscular Volume 84.5 fL (80-94); Mean Platelet Vol. 9.8 fl (6.2-12.0); Monocyte# 0.52 X10^3/uL; NRBC Flagged by Analyzer 0 % (0-5); Neutrophil # 5.69 X10^3/uL (2.7-7.7); Neutrophil % 76.9 % (47-70); Platelet Count 261 K/mm3 (150-450); RBC Distribution Width CV 13.2 % (11.6-14.6); RBC Distribution Width SD 40.2 fl (35.1-43.9); Red Blood Count 5.47 M/mm3 (4.6-6.2); White Blood Count 7.4 K/mm3 (4.4-11.0)
[2024-07-22] MEDS: Aspirin 81 MG TAB.CHEW 324 MG PO (12:03)
[2024-07-22 12:10] VITALS: BP 118/57; PULSE 57; RESP 19; O2SAT 98
[2024-07-22 13:00] VITALS: BP 113/82; PULSE 57; RESP 19; O2SAT 98
[2024-07-22 13:09] VITALS: BP 107/62; O2SAT 98
[2024-07-22 13:15] LABS: Anion Gap 12 (5-15); BUN 21 mg/dL (4-19); BUN/Creat Ratio 25.1 RATIO (10-20); Calcium,Total 9.5 mg/dL (7.6-11.0); Carbon Dioxide 24.8 mmol/L (21.0-32.0); Chloride 100 mmol/L (98-108); Creatinine, Serum 0.85 mg/dL (0.70-1.20); EST Glomerular Filtration Rate 99 (>60); Estimated Creatinine Clearance 105.73 ml/min (50-250); Glucose 126 mg/dL (70-99); Potassium 4.3 mmol/L (3.3-5.1); Sodium Level 136 mmol/L (133-145); Troponin T High Sensitivity 10 ng/L (<=22)
[2024-07-22 14:00] VITALS: BP 113/82; PULSE 55; RESP 16; O2SAT 98
[2024-07-22 14:43] LABS: Troponin T High Sens 2 HR 8 ng/L (<=22)
[2024-07-22 14:49] VITALS: BP 156/85; PULSE 57; RESP 19; TEMP 36.7; O2SAT 98
== END 2024-07-22 14:53 | disposition home or self-care (01) ==
PROVIDERS: Physician Assistant; Emergency Provider Emergency Medicine; PCP Internal Medicine; Visit Provider Emergency Medicine
DX: R07.89 Other chest pain (principal); I10 Essential (primary) hypertension
CPT/HCPCS: 71046; 80048; 84484; 85025; 93005; 99284; A4216